=== PATIENT | female | born 1985 | race Caucasian/White ===

== ENCOUNTER → 2023-12-20 13:11 | Outpatient (REF) | payer OTHER, SELFPAY | LOC: HWRAD 13:11 | PROVIDERS: ATTENDING PHYSICIAN Obstetrics & Gynecology; FAMILY PHYSICIAN Physician Assistant Medical | DX: Z31.9 Encounter for procreative management, unspecified (principal) | CPT/HCPCS: 76830; 76856 ==

== ENCOUNTER → 2024-09-27 14:54 | Outpatient (REF) | payer OTHER, SELFPAY | LOC: PNTC 14:54 | PROVIDERS: ATTENDING PHYSICIAN Student in an Organized Health Care Education/Training Program | DX: O09.529 Supervision of elderly multigravida, unspecified trimester (principal) | CPT/HCPCS: 36415; 76801; 76813 ==

== ENCOUNTER 2025-03-12 11:30 | Observation (INO) | payer OTHER, SELFPAY ==
[2025-03-12 12:19] VITALS: BP 143/71; BMI 28.0
[2025-03-12 12:19] LABS: Hematocrit 37.0 % (37.0-47.0); Hemoglobin 12.9 g/dL (12.0-16.0); Mean Corp Hgb Conc. 34.9 g/dL (33.0-37.0); Mean Corpuscular Volume 94.1 fL (81.0-99.0); Nucleated Red Blood Cells % 0 %; Platelet Count 167 10^3/uL (130-400); Red Cell Dist. Width 12.3 % (11.5-14.5)
[2025-03-12 12:34] LABS: ALT (SGPT) 16 U/L (0-35); AST (SGOT) 23 U/L (14-36); Albumin 3.3 g/dl (3.5-5.0); Alkaline Phosphatase 96 U/L (38-126); Blood Urea Nitrogen 10 mg/dl (7-17); Calcium 8.4 mg/dl (8.4-10.2); Carbon Dioxide 26 mmol/L (22-30); Chloride 108 mmol/L (98-107); Estimated Creatinine Clearance > 125 ml/min; Glucose 112 mg/dl (70-99); Potassium 3.7 mmol/L (3.5-5.1); Sodium 135 mmol/L (135-145); Total Protein 5.9 g/dl (6.3-8.2); eGFR > 60.00
== END 2025-03-12 13:52 | disposition home or self-care (01) ==
LOC: PNTC-IN 11:30
PROVIDERS: ADMITTING PHYSICIAN Obstetrics & Gynecology; ATTENDING PHYSICIAN Obstetrics & Gynecology
DX: O99.891 Other specified diseases and conditions complicating pregnancy (principal); R03.0 Elevated blood-pressure reading, without diagnosis of hypertension; Z3A.36 36 weeks gestation of pregnancy
CPT/HCPCS: 59025; 76816; 80053; 82570; 84156; 85025; G0378

== ENCOUNTER 2025-03-14 15:31 | Inpatient (IN) | payer OTHER, SELFPAY ==
[2025-03-14 15:08] LABS: Hematocrit 37.8 % (37.0-47.0); Hemoglobin 13.3 g/dL (12.0-16.0); Mean Corp Hgb Conc. 35.2 g/dL (33.0-37.0); Mean Corpuscular Volume 93.1 fL (81.0-99.0); Nucleated Red Blood Cells % 0 %; Platelet Count 176 10^3/uL (130-400); Red Cell Dist. Width 12.3 % (11.5-14.5)
[2025-03-14 15:12] VITALS: BP 163/99; BMI 28.7
[2025-03-14 15:20] LABS: ALT (SGPT) 16 U/L (0-35); AST (SGOT) 22 U/L (14-36); Albumin 3.6 g/dl (3.5-5.0); Alkaline Phosphatase 106 U/L (38-126); Blood Urea Nitrogen 12 mg/dl (7-17); Calcium 8.8 mg/dl (8.4-10.2); Carbon Dioxide 23 mmol/L (22-30); Chloride 109 mmol/L (98-107); Glucose 84 mg/dl (70-99); Potassium 3.8 mmol/L (3.5-5.1); Sodium 136 mmol/L (135-145); Total Protein 6.2 g/dl (6.3-8.2); eGFR > 60.00
[2025-03-14 16:01] VITALS: BP 168/108; BMI 28.7
[2025-03-14] MEDS: TRANDATE 20 MG IV (16:02)
[2025-03-14] MEDS: MAGNESIUM SULFATE 100 IV (16:07)
[2025-03-14] MEDS: LR 1000 IV (16:08)
[2025-03-14] MEDS: BICITRA 30 ML PO (16:23)
[2025-03-14] MEDS: TYLENOL 975 MG PO (16:24)
[2025-03-14] MEDS: ANCEF 10 IV (16:26)
[2025-03-14] MEDS: MAGNESIUM SULFATE 40 GRAM 1000 IV (16:29)
[2025-03-14 18:00] VITALS: BP 175/104
[2025-03-14] MEDS: DILAUDID 0.5 MG IV (18:25)
[2025-03-14] MEDS: MORPHINE SULFATE 4 MG IV (18:35)
[2025-03-14] MEDS: TRANDATE 40 MG IV (19:03)
[2025-03-14] MEDS: PROCARDIA XL (EXTENDED RELEASE) 30 MG PO (19:55)
[2025-03-14] MEDS: COLACE 100 MG PO (19:55)
[2025-03-14] MEDS: TORADOL 15 MG IV (19:56)
[2025-03-14] MEDS: PITOCIN 30 UNITS/NSS 500 ML IV (19:57)
[2025-03-14] MEDS: CYTOTEC 800 MCG RECTAL (20:23)
[2025-03-14] MEDS: TRANEXAMIC ACID 100 IV (20:35)
[2025-03-15] MEDS: TORADOL 15 MG IV ×3 (02:18→14:08)
[2025-03-15 06:29] LABS: Hematocrit 30.9 % (37.0-47.0); Hemoglobin 11.1 g/dL (12.0-16.0); Mean Corp Hgb Conc. 35.9 g/dL (33.0-37.0); Mean Corpuscular Volume 92.0 fL (81.0-99.0); Platelet Count 147 10^3/uL (130-400); Red Cell Dist. Width 11.9 % (11.5-14.5)
--- NOTE | 2025-03-15 07:26 | W.PN.ANS.POP ---
Anesthesia Post Operative
- Anesthesia Post Op Note
Vital Signs Stable-See Nursing Note: Yes (pt sleeping comfortably, chart reviewed, no apparent issues)
Airway Patent: Yes
Adequate Pain Control: Yes
Change in Mental Status: No
Current Postoperative Nausea & Vomiting: No
Anesthesia Complications: No (n/a c section)
General Anesthetic Recall: No
Unplanned Admission: No
Post Op Hydration Adequate: Yes
[2025-03-15] MEDS: PROCARDIA XL (EXTENDED RELEASE) 30 MG PO (08:11)
[2025-03-15] MEDS: PRENATAL PLUS 1 TABLET PO (08:12)
[2025-03-15] MEDS: COLACE 100 MG PO ×2 (08:12→20:03)
[2025-03-15] MEDS: LEXAPRO 10 MG PO (08:12)
[2025-03-15 11:17] LABS: Syphilis/T. pallidum Ab Reflex Negative (Negative)
[2025-03-15] MEDS: MAGNESIUM SULFATE 40 GRAM 1000 IV (13:38)
[2025-03-15] MEDS: LR 1000 IV (13:40)
[2025-03-15] MEDS: MOTRIN 600 MG PO (20:11)
[2025-03-16] MEDS: PROCARDIA XL (EXTENDED RELEASE) 60 MG PO (05:23)
[2025-03-16] MEDS: MOTRIN 600 MG PO ×2 (05:24→15:27)
[2025-03-16] MEDS: LEXAPRO 10 MG PO (08:05)
[2025-03-16] MEDS: COLACE 100 MG PO (08:05)
[2025-03-16] MEDS: PRENATAL PLUS 1 TABLET PO (08:05)
== END 2025-03-16 16:10 | disposition home or self-care (01) | DRG 788 ==
LOC: LDRP 15:31
PROVIDERS: ADMITTING PHYSICIAN Obstetrics & Gynecology
PROC: 10D00Z1 Extraction of Products of Conception, Low, Open Approach (ICD-10-PCS; 2025-03-14)
DX: O14.14 Severe pre-eclampsia complicating childbirth (principal); Z3A.36 36 weeks gestation of pregnancy; Z37.0 Single live birth; F32.A Depression, unspecified; O99.344 Other mental disorders complicating childbirth; J45.909 Unspecified asthma, uncomplicated; O99.52 Diseases of the respiratory system complicating childbirth; O72.1 Other immediate postpartum hemorrhage; O34.211 Maternal care for low transverse scar from previous cesarean delivery
CPT/HCPCS: 80053; 82570; 84156; 85025; 85027; 86780; 86850; 86900; 86901; 88307